=== PATIENT | male | born 1980 | race African-American/Black ===

== ENCOUNTER 2016-08-26 17:23 | Emergency (ER) | payer OTHER ==
[~2016-08-26] VITALS: Ht 185.4 cm; Wt 93.0 kg
[2016-08-26 17:32] VITALS: BP 149/99
--- NOTE | 2016-08-26 18:10 | ED GENERAL ADULT ---
History of Present Illness General Chief Complaint: Male Genitourinary Problems Stated Complaint: "IT GUADARRAMA WHEN I URINATE" Source: patient Exam Limitations: no limitations Vital Signs & Intake/Output Vital Signs & Intake/Output Vital Signs Date Time Temp Pulse Resp B/P Pulse O2 O2 Flow FiO2 Ox Delivery Rate 08/26 1806 Room Air 08/26 1732 98.5 71 18 149/99 100 Room Air Allergies Coded Allergies: No Known Allergies (08/26/16) Triage Note: PT TO ED FOR BURNING ON URINATION, RECENT UNPROTECTED SEX, +WHITE PURULENT DRAINAGE. Triage Nurses Notes Reviewed? yes Onset: Gradual Duration: day(s): (3) Timing: no prior history Injury Environment: home Severity: moderate Severity Numbers: 9 No Modifying Factors: none HPI: Patient is a 36-year-old male presenting to the emergency department chief complaint of urinary frequency and penile discharge since been going on for the past 3 days. Symptoms worse with urination. Recently got back together with his , unsure if she was with anyone while they were apart. Symptoms started a few days after this he had intercourse with her. Denies abdominal pain. No nausea vomiting fevers or chills. No chest pain or shortness of breath. No history of STD in the past. Denies taking anything to help with symptoms. (MINOR OCHOA) Past History Travel History Traveled to [place] past 21 day No Medical History Any Pertinent Medical History? see below for history Neurological: NONE EENT: NONE Cardiovascular: NONE Respiratory: NONE Gastrointestinal: NONE Hepatic: NONE Renal: NONE Musculoskeletal: NONE Psychiatric: NONE Endocrine: NONE Blood Disorders: NONE Cancer(s): NONE Surgical History Surgical History: non-contributory Psychosocial History What is your primary language [place]ian Tobacco Use: Never used ETOH Use: occasional use Illicit Drug Use: denies illicit drug use Family History Hx Contributory? No (MINOR OCHOA) Review of Systems Review of Systems Constitutional: Reports: no symptoms. Comments Review of systems: See HPI, All other systems negative. Constitutional, no chills fever or weight loss HEENT: No visual changes no sore throat no congestion Cardiovascular: No chest pain ,palpitation , orthopnea or ankle swelling Skin, no jaundice no rashes Respiratory: No dyspnea cough sputum or hemoptysis GI: No nausea no vomiting : No hematuria Muscle skeletal: no back pain, no neck pain, Neurologic: No numbness no confusion Psych: No stress anxiety Immunology: No splenectomy or history of AIDS (MINOR OCHOA) Physical Exam Physical Exam General Appearance: well developed/nourished, no apparent distress, alert, awake , comfortable Comments: Well-developed well-nourished person in no acute distress HEENT: Nose is atraumatic. Neck: Normal inspection Back: Nontender, no CVA tenderness. Cardiovascular: Regular rate and rhythms no murmurs rubs or gallops, normal JVP Respiratory: Chest nontender. No respiratory distress.breath sounds clear to auscultation bilaterally Abdomen: Soft, nontender nondistended, no appreciable organomegaly. Normal bowel sounds. No ascites : No tenderness to palpation over the penile shaft. No discharge noted from the urethral meatus. No lesions appreciated on inspection. Extremity: No edema Neuro: Alert oriented x3 Skin: No appreciable rash on exposed skin, skin is warm and dry. Psych: Mood and affect is normal, memory and judgment is normal. Core Measures ACS in differential dx? No CVA/TIA Diagnosis: No Severe Sepsis Present: No Septic Shock Present: No (MINOR OCHOA) Progress Differential Diagnoses I considered the following diagnoses in my evaluation of the patient: STI, UTI, hydronephrosis, pyelonephritis, prostatitis Plan of Care: Orders Procedure Date/time Status Add-on Test (ER Only) 08/27 1807 Active CHLAMYDIA-GC DNA PROBE 08/26 1799 Active URINALYSIS 08/26 1738 Complete Laboratory Tests 08/26/16 1800: Urine Color STRAW, Urine Clarity CLEAR, Urine pH 6.0, Ur Specific [place] 1.010, Urine Protein NEG, Urine Ketones NEG, Urine Nitrite NEG, Urine Bilirubin NEG, Urine Urobilinogen 0.2, Ur Leukocyte Esterase NEG, Ur Microscopic EXAM NOT REQUIRED, Urine Hemoglobin NEG, Urine Glucose NEG Microbiology 08/26 1799 URINE ROUT: GC DNA Probe - RECD 08/26 1799 URINE ROUT: Chlamydia DNA Probe (MATT) - RECD Initial ED EKG: none Comments: Vision prophylactically treated with IM Rocephin and by mouth azithromycin. We will call with culture results if positive. Patient declined testing for any other STIs or hiv. (MINOR OCHOA) Departure Departure Time of Disposition: 1825 Disposition: HOME OR SELF CARE Condition: Stable Clinical Impression Primary Impression: Dysuria Secondary Impressions: Penile discharge Referrals: RINKU HARRISON MD (PCP/Family) Additional Instructions: Follow-up with your primary care physician call to make appointment. Increase fluids. He was treated prophylactically with Rocephin and azithromycin. Departure Forms: Customer Survey General Discharge Information (MINOR OCHOA) PA/ARCHIVES SPECIALIST Co-Sign Statement Statement: ED Attending supervision documentation- [] I saw and evaluated the patient. I have also reviewed all the pertinent lab results and diagnostic results. I agree with the findings and the plan of care as documented in the PA's/ARCHIVES SPECIALIST's documentation. [X] I have reviewed the ED Record and agree with the PA's/ARCHIVES SPECIALIST's documentation. [] Additions or exceptions (if any) to the PAs/ARCHIVES SPECIALIST's note and plan are summarized below: [] (FERNIE CAMPBELL,JENNIFER Ricks) Critical Care Note Critical Care Note Critical Care Time: non-applicable (MINOR OCHOA)
== END 2016-08-26 18:52 ==
LOC: ERH 17:23
DX: R30.0 Dysuria (principal); R36.9 Urethral discharge, unspecified
CPT/HCPCS: 81003; 87491; 87591; 96372; J0456; J0696